=== PATIENT | female | born 1940 | race Hispanic/Latino ===

== ENCOUNTER 2022-01-02 20:53 | Emergency (ER) | payer MEDICARE, OTHER ==
--- NOTE | 2022-01-03 04:02 | Emergency Department Report ---
HPI - General Chief Complaint: Medical Clearance Time Seen by Provider: 01/03/22 02:56 - HPI HPI: MSE 5 The patient is a 81-year-old female present with a chief complaint of paranoid behavior. Patient is brought in by the daughter states the patient walked out of the home tonight and police had to be called to find her. Daughter states since Thanksgiving she has had increasing episodes of paranoia, violent fits and visual hallucinations. The daughter states the patient sees people in the house and sitting on the roof. She states the patient believes people are after her and she is fearful someone is going to hurt her. The daughter states that the patient has voiced suicidal ideation within the past 2 weeks. The patient reportedly sustained a broken arm this past weekend and was evaluated and placed in a sling. The daughter states the patient remove the sling today prior to leaving the house. When asked how she is feeling the patient states she is upset because the police picked her up but otherwise denies complaints. ED Past Medical Hx - Past Medical History Previous Medical History?: Yes Hx Hypertension: Yes Additional medical history: esophageal erosion, Triple Bypass CABG 2013 - Surgical History Past Surgical History?: Yes Additional Surgical History: hysterectomy, appendectomy, CABG 2013 Triple Bypass - Family History Family history: no significant - Social History Smoking Status: Never Smoker Substance Use Type: None - Medications Home Medications: Home Medications Medication Instructions Recorded Confirmed Last Taken Type Memantine HCl 10 mg PO BID 01/04/22 01/04/22 Unknown History Metoprolol 25 mg PO QDAY 01/04/22 01/04/22 Unknown History Plavix 75 mg pe PO QDAY 01/04/22 01/04/22 Unknown History Premarin 0.625 mg PO 01/04/22 Unknown History QUEtiapine 25 mg PO QHS 01/04/22 01/04/22 Unknown History ED Review of Systems ROS: Stated complaint: MH Other details as noted in HPI Constitutional: no symptoms reported Eyes: denies: eye pain ENT: denies: throat pain Respiratory: no symptoms reported Cardiovascular: denies: chest pain Endocrine: no symptoms reported Gastrointestinal: denies: abdominal pain Genitourinary: denies: dysuria Musculoskeletal: denies: back pain Neurological: denies: headache Psychiatric: visual hallucinations (Per daughter), suicidal thoughts Physical Exam - Physical Exam Vital Signs: Vital Signs 01/03/22 02:41 Temperature 97.7 F Pulse Rate 62 Respiratory 20 Rate Blood Pressure 148/52 [Right] O2 Sat by Pulse 100 Oximetry Physical Exam: GENERAL: The patient is well-developed well-nourished female sitting in chair not appearing to be in acute distress. [] HEENT: Normocephalic. Atraumatic. Extraocular motions are intact. Patient has moist mucous membranes. NECK: Supple. Trachea midline CHEST/LUNGS: Clear to auscultation. There is no respiratory distress noted. HEART/CARDIOVASCULAR: Regular. There is no tachycardia. There is no gallop rub or murmur. ABDOMEN: Abdomen is soft, nontender. Patient has normal bowel sounds. There is no abdominal distention. SKIN: There is no rash. There is no edema. There is no diaphoresis. NEURO: The patient is awake and alert. The patient is cooperative. The patient has no focal neurologic deficits. The patient has normal speech. Cranial nerves II through XII grossly intact although cranial nerve XI on the left is limited secondary to recent fracture. GCS 15 MUSCULOSKELETAL: There is limited range of motion of the left shoulder secondary to recent fracture ED Course Vital Signs 01/03/22 02:41 Temperature 97.7 F Pulse Rate 62 Respiratory 20 Rate Blood Pressure 148/52 [Right] O2 Sat by Pulse 100 Oximetry ED Medical Decision Making - Lab Data Result diagrams: 01/03/22 03:42 01/03/22 03:42 Laboratory Tests 01/03/22 01/03/22 01/03/22 03:42 03:42 03:42 WBC 8.2 RBC 3.33 L Hgb 9.8 L Hct 30.5 MCV 91 MCH 30 MCHC 32 RDW 14.1 Plt Count 214 Lymph % (Auto) 19.2 [place] % (Auto) 9.2 H Eos % (Auto) 0.7 Baso % (Auto) 1.0 Lymph # (Auto) 1.6 [place]hin # (Auto) 0.8 Eos # (Auto) 0.1 Baso # (Auto) 0.1 Seg Neutrophils % 69.9 Seg Neutrophils # 5.7 Sodium 138 Potassium 4.7 Chloride 104.4 Carbon Dioxide 22 Anion Gap 16 BUN 36 H Creatinine 1.6 H Estimated GFR 31 BUN/Creatinine Ratio 23 Glucose 117 H Calcium 8.8 Plasma/Serum Alcohol < 0.01 - Radiology Data Radiology results: report reviewed (CT head), image reviewed (CT head) [facility] [address] [place] [address] Cat Scan Report Signed Patient: OLIVIA FAJARDO MR#: [id number] : 1940 Acct:[id number] Age/Sex: 81 / F ADM Date: 01/02/22 Loc: ED Attending Dr: Ordering Physician: DIXON CAO MD Date of Service: 01/03/22 Procedure(s): CT head/brain wo con Accession Number(s): [id number] cc: DIXON CAO MD CT HEAD WITHOUT CONTRAST INDICATION / CLINICAL INFORMATION: Paranoia, visual hallucinations. TECHNIQUE: CT of the head was performed without administration of intravenous contrast. All CT scans at this location are performed using CT dose reduction for ALARA by means of automated exposure control. COMPARISON: None available. FINDINGS: CEREBRAL PARENCHYMA: No significant abnormality. No acute territorial infarct. Moderately advanced generalized atrophy. Bilateral periventricular white matter hypoattenuation compatible with microvascular ischemia. HEMORRHAGE: None. EXTRA-AXIAL SPACES: Normal in size and morphology for the patient's age. VENTRICULAR SYSTEM: Normal in size and morphology for the patient's age. MIDLINE SHIFT / HERNIATION: None. CEREBELLUM / BRAINSTEM: No significant abnormality. ORBITS: Normal as visualized. SOFT TISSUES: No signifi cant abnormality. SKULL: No significant abnormality. PARANASAL SINUSES / MASTOID AIR CELLS: Normal as visualized. ADDITIONAL FINDINGS: None. IMPRESSION: 1. No acute intracranial abnormality. Moderately advanced senescent changes. Signer Name: Graciela James II, MD Signed: 01/03/2022 4:40 AM Workstation Name: [id number] Transcribed By: RASHEED Dictated By: GRACIELA JAMES II, MD Electronically Authenticated By: GRACIELA JAMES II, MD Signed Date/Time: 01/03/22439 DD/ 8 TD/TT: Print - Differential Diagnosis Dementia, metabolic encephalopathy, ICH, intracranial mass Critical care attestation.: If time is entered above; I have spent that time in minutes in the direct care of this critically ill patient, excluding procedure time. ED Disposition Clinical Impression: Paranoia Disposition: [address] [place] [address] Is pt being admited?: No Does the pt Need Aspirin: No Condition: Stable
[2022-01-03 04:17] LABS: Basophils # (Auto) 0.1 K/mm3 (0.0-0.1); Eosinophils # (Auto) 0.1 K/mm3 (0.0-0.4); Eosinophils % (Auto) 0.7 % (0.0-4.3); Hematocrit 30.5 % (30.3-42.9); Hemoglobin 9.8 gm/dl (10.1-14.3); Lymphocytes # (Auto) 1.6 K/mm3 (1.2-5.4); Lymphocytes % (Auto) 19.2 % (13.4-35.0); Mean Corpuscular HGB Conc 32 % (30-34); Mean Corpuscular Volume 91 fl (79-97); Monocytes # (Auto) 0.8 K/mm3 (0.0-0.8); Monocytes % (Auto) 9.2 % (0.0-7.3); Platelet Count 214 K/mm3 (140-440); Red Blood Count 3.33 M/mm3 (3.65-5.03); Red Cell Distribution Width 14.1 % (13.2-15.2)
[2022-01-03 04:20] LABS: Calcium 8.8 mg/dL (8.4-10.2)
--- NOTE | 2022-01-03 04:45 | Cat Scan Report ---
CT HEAD WITHOUT CONTRAST INDICATION / CLINICAL INFORMATION: Paranoia, visual hallucinations. TECHNIQUE: CT of the head was performed without administration of intravenous contrast. All CT scans at this location are performed using CT dose reduction for ALARA by means of automated exposure contr ol. COMPARISON: None available. FINDINGS: CEREBRAL PARENCHYMA: No significant abnormality. No acute territorial infarct. Moderately advanced ge neralized atrophy. Bilateral periventricular white matter hypoattenuation compatible with microvascul ar ischemia. HEMORRHAGE: None. EXTRA-AXIAL SPACES: Normal in size and morphology for the patient's age. VENTRICULAR SYSTEM: Normal in size and morphology for the patient's age. MIDLINE SHIFT / HERNIATION: None. CEREBELLUM / BRAINSTEM: No significant abnormality. ORBITS: Normal as visualized. SOFT TISSUES: No significant abnormality. SKULL: No significant abnormality. PARANASAL SINUSES / MASTOID AIR CELLS: Normal as visualized. ADDITIONAL FINDINGS: None. IMPRESSION: 1. No acute intracranial abnormality. Moderately advanced senescent changes. Signer Name: Douglas Eckert II, MD Signed: 01/03/2022 4:40 AM Workstation Name: [id number]
[2022-01-03 09:06] LABS: Bilirubin,Urine NEG (Negative); Blood,Urine NEG (Negative); Color,Urine Yellow (Yellow); Protein,Urine <15 mg/dL mg/dL (Negative); Urobilinogen,Urine < 2.0 mg/dL (<2.0)
[2022-01-03 09:14] LABS: Amphetamine Screen,Urine Negative; Benzodiazepines Screen,Urine Negative; Cannabinoid Screen,Urine Negative; Cocaine Screen,Urine Negative; Methadone Screen,Urine Negative; Opiate Screen,Urine Negative; RBC,Urine < 1.0 /HPF (0.0-6.0); WBC,Urine < 1.0 /HPF (0.0-6.0)
--- NOTE | 2022-01-03 13:17 | Consultation ---
History of Present Illness - Reason for Consult Consult date: 01/03/22 Reason for consult: paranoia - History of Present Psychiatric Illness The patient was seen today. She is calm, and cooperative. She is polite. The patient offered me her seat to sit down. SHe is a 81y/o female brought in by the daughter for increasing hallucinations, and paranoia. She says the other night the patient walked out of the house around 8 pm. She says the patient has been getting progressively worse with her paranoia, hallucinating, not recognizing people, screaming and yelling. She says the patient's primary doctor says "she's senile and this is due to old age." She says the patient has never had any psych diagnoses. The patient is on seroquel as needed, her daughter states. She also says the patient is on "manenda to help her thoughts." PAST PSYCHIATRIC HISTORY: Diagnoses: Denies Suicide attempts or Self-harm behavior: Denies Prior psychiatric hospitalizations: Denies Substance Abuse history: Denies Previous psychiatric medications tried: Seroquel Outpatient treatment: Primary PAST MEDICAL HISTORY: None reported Family Psychiatric History: None reported or documented SOCIAL HISTORY Marital Status: Single Living Arrangements: with daughter Employment Status: Retired Access to guns/weapons: Denies Education: History of Abuse: Denies Legal History: Denies REVIEW OF SYSTEMS Constitutional: Negative for weight loss ENT: Negative for stridor Respiratory: Negative for cough or hemoptysis All other systems reviewed and are negative MENTAL STATUS EXAMINATION General Appearance and Behavior: Age appropriate, good hygiene, wearing appropriate clothes. calm cooperative Cooperation: Cooperative Psychomotor Behavior: Psychomotor normal Mood: okay Affect and affective range: congruent with stated mood Thought Process: circumstantial Thought Content: hallucinations, delusions (per daughter) Speech: Normal tone and pace Suicidal Ideation: Denies Homicidal Ideation: Denies Hallucinations: Yes Delusions: Yes Impulse Control: Limited Insight and Judgment: Poor insight and fair judgment Memory: Limited Attention: distracted Orientation: a/o x 3 Assessment (1) Mood Disorder, Unspecified (2) R/O Neurocognitive Disorder Current Visit: Yes Status: Acute Treatment Plan 1013 Seroquel 25mg po BID Melatonin 5mg po qhs prn insomnia Medical: per primary Sitter: refer to primary Disposition: Recommend acute psychiatric inpatient treatment Will follow. Thanks Case staffed with Dr. Hussein Medications and Allergies Allergies Allergy/AdvReac Type Severity Reaction Status Date / Time [id number] Reductase AdvReac Unknown Verified 08/21/14 03:09 Inhibitor [Ewprvaq-Mdv-Pdv Reductase Inhibitor] Home Medications Medication Instructions Recorded Confirmed Last Taken Type Aspirin [Aspirin BABY CHEW TAB] 81 mg PO DAILY 08/21/14 08/21/14 08/21/14 History Diltiazem HCl [Cardizem Cd] 240 mg PO DAILY 08/21/14 08/21/14 08/20/14 History Esomeprazole Magnesium [NexIUM 20 mg PO DAILY 08/21/14 08/21/14 Unknown History 24Hr] Estrogens, Conjugated [Premarin] 0.3 mg PO DAILY 08/21/14 08/21/14 Unknown History Sucralfate [Carafate] 1 gm PO ACHS #120 cc 08/21/14 Unknown Rx Tolterodine Tartrate [Detrol] 1 tab PO DAILY 08/21/14 08/21/14 Unknown History Mental Status Exam - Vital signs Last Vital Signs Temp 97.7 F 01/03/22 02:41 Pulse 62 01/03/22 02:41 Resp 20 01/03/22 02:41 BP 148/52 01/03/22 02:41 Pulse Ox 100 01/03/22 02:41 Results Result Diagrams: 01/03/22 03:42 01/03/22 03:42 Abnormal lab results 01/03/22 01/03/22 Range/Units 03:42 03:42 RBC 3.33 L (3.65-5.03) M/mm3 Hgb 9.8 L (10.1-14.3) gm/dl [place] % (Auto) 9.2 H (0.0-7.3) % BUN 36 H (7-17) mg/dL Creatinine 1.6 H (0.6-1.2) mg/dL Glucose 117 H (65-100) mg/dL All other labs normal.
[2022-01-03] MEDS ORDERED: MELATONIN 5 MG TAB PO PRN (13:25)
[2022-01-03] MEDS: QUEtiapine 25 MG TAB PO SCH (14:23)
[2022-01-03] MEDS: ACETAMINOPHEN 500 MG TAB PO PRN (14:23)
--- NOTE | 2022-01-03 14:56 | Event Note ---
Date: 01/03/22 Patient is 81 years old female with history of dementia. Patient brought to the emergency room for evaluation of paranoid thoughts. Patient has been calm most of the time however she has some episode of agitation and trying to leave and Became combative sometimes. Patient received Ativan. Labs reviewed and is unremarkable except for UTI. Patient started on Macrobid.
[2022-01-03] MEDS ORDERED: LORazepam 2 MG/ML VIAL IM ONE (15:14)
[2022-01-03] MEDS: NITROFURANTOIN MONOHYD/M-CRYST 100 MG CAP PO SCH (15:27)
[2022-01-04] MEDS: NITROFURANTOIN MONOHYD/M-CRYST 100 MG CAP PO SCH ×2 (07:26→09:43)
[2022-01-04] MEDS: QUEtiapine 25 MG TAB PO SCH ×2 (07:27→09:43)
[2022-01-04] MEDS: ACETAMINOPHEN 500 MG TAB PO PRN (09:40)
--- NOTE | 2022-01-04 10:29 | Progress Note ---
Subjective - Reason for Consult Consult date: 01/04/22 Reason for consult: delsuions, paranoia - Chief Complaint Chief complaint: The patient was seen today. She is calm and cooperative. She says she feels "so so" when asked. Her daughter is not at bedside today. I ask the patient where is her daughter, she replies "she is here. She is smiling at me. I tried to help her but I couldn't help her." She denies SI/HI. REVIEW OF SYSTEMS Constitutional: Negative for weight loss ENT: Negative for stridor Respiratory: Negative for cough or hemoptysis All other systems reviewed and are negative MENTAL STATUS EXAMINATION General Appearance and Behavior: Age appropriate, good hygiene, wearing appropriate clothes. calm cooperative Cooperation: Cooperative Psychomotor Behavior: Psychomotor normal Mood: okay Affect and affective range: congruent with stated mood Thought Process: circumstantial Thought Content: hallucinations, delusions (per daughter) Speech: Normal tone and pace Suicidal Ideation: Denies Homicidal Ideation: Denies Hallucinations: Yes Delusions: Yes Impulse Control: Limited Insight and Judgment: Poor insight and fair judgment Memory: Limited Attention: distracted Orientation: a/o x 3 Assessment (1) Mood Disorder, Unspecified (2) R/O Neurocognitive Disorder Current Visit: Yes Status: Acute Treatment Plan 1013 Seroquel 25mg po BID Melatonin 5mg po qhs prn insomnia Medical: per primary Sitter: refer to primary Disposition: Recommend acute psychiatric inpatient treatment Will follow. Thanks Case staffed with Dr. Hussein Mental Status Exam - Vital signs Last Vital Signs Temp 98.4 F 01/04/22 07:05 Pulse 79 01/04/22 08:31 Resp 16 01/04/22 08:31 BP 122/59 01/04/22 08:31 Pulse Ox 99 01/04/22 08:31
--- NOTE | 2022-01-04 10:59 | Event Note ---
Accepting facility had questions regarding patient's injury. Left humerus in forearm radiographs were obtained. Patient has proximal humeral fracture. Sling is adequate treatment for humeral fracture. Patient is medically clear for mental health care.
--- NOTE | 2022-01-04 11:13 | XRay Report ---
LEFT HUMERUS 2 VIEW(S) INDICATION / CLINICAL INFORMATION: left arm injury COMPARISON: None available. FINDINGS: BONES / JOINT(S): There is a displaced fracture of the left humeral neck. There is medial displacemen t of the distal fragment. SOFT TISSUES: There is soft tissue swelling adjacent to the fracture site. ADDITIONAL FINDINGS: None. LEFT FOREARM 2 VIEW(S) INDICATION / CLINICAL INFORMATION: left arm injury COMPARISON: None available. FINDINGS: BONES / JOINT(S): No acute fracture or subluxation. No significant arthritis. SOFT TISSUES: No significant abnormality. ADDITIONAL FINDINGS: None. Signer Name: Don Hernandez MD Signed: 01/04/2022 11:09 AM Workstation Name: [id number]
[2022-01-05] MEDS: ACETAMINOPHEN 500 MG TAB PO PRN ×2 (08:10→17:01)
[2022-01-05] MEDS: QUEtiapine 25 MG TAB PO SCH ×3 (11:00→21:51)
[2022-01-05] MEDS: NITROFURANTOIN MONOHYD/M-CRYST 100 MG CAP PO SCH ×3 (11:30→21:52)
[2022-01-05] MEDS: IBUPROFEN 200 MG TAB PO PRN ×2 (13:50→21:52)
[2022-01-05 21:16] VITALS: BP 119/95
== END 2022-01-06 00:40 ==
LOC: ED 20:53
DX: F22 Delusional disorders (principal); S49.80XD Other specified injuries of shoulder and upper arm, unspecified arm, subsequent encounter; R90.82 White matter disease, unspecified; Z79.899 Other long term (current) drug therapy; I10 Essential (primary) hypertension; Z90.710 Acquired absence of both cervix and uterus; Z20.822 Contact with and (suspected) exposure to COVID-19; X58.XXXD Exposure to other specified factors, subsequent encounter
CPT/HCPCS: 36415; 70450; 73060; 73090; 80048; 80307; 81001; 85025; 96372; 99285; J2060; U0003; 80320; G0480